=== PATIENT | female | born 1995 | race Caucasian/White ===

== ENCOUNTER 2016-09-02 09:19 | Emergency (ER) | payer OTHER ==
[2016-09-02] MEDS ORDERED: PANTOPRAZOLE 40MG INJ (PROTONIX) (C9113) As Ordered ONE (10:30)
[2016-09-02 10:57] LABS: BASO % 0.5 % (0.0-1.0); EOS # 0.1 K/mm3 (0.0-0.50); EOS % 1.6 % (0.0-3.0); LARGE UNSTAINED CELL # 0.1 K/mm3 (0.0-0.4); LARGE UNSTAINED CELL % 2.3 % (0.0-4.0); LYMPH # 1.1 K/mm3 (1.5-6.5); LYMPH % 27.7 % (24.0-44.0); MEAN CORPUSCULAR HEMOGLOBIN 29.3 pg (27.0-33.0); MEAN CORPUSCULAR VOLUME 86.2 fl (80.0-96.0); MONO # 0.3 K/mm3 (0.0-0.8); MONO % 7.3 % (0.0-5.0); NEUTROPHILS # 2.4 K/mm3 (1.8-7.7); NEUTROPHILS % 60.5 % (36.0-66.0); PLATELET COUNT, AUTOMATED 233 k/mm3 (150-450); RED CELL DISTRIBUTION WIDTH 12.3 % (11.5-14.5)
[2016-09-02 11:06] LABS: ALBUMIN 3.6 GM/DL (3.2-5.2); ALBUMIN/GLOBULIN RATIO 0.95 (1.00-1.93); ALKALINE PHOSPHATASE 70 U/L (45-117); ALT/SGPT 41 U/L (12-78); AMYLASE 43 U/L (25-115); ANION GAP 8 MEQ/L (8-16); AST/SGOT 23 U/L (15-37); BILIRUBIN,DIRECT < 0.1 MG/DL (0.0-0.2); BILIRUBIN,TOTAL 0.3 MG/DL (0.2-1.0); BLOOD UREA NITROGEN 8 MG/DL (7-18); CALCIUM LEVEL 8.7 MG/DL (8.5-10.1); CARBON DIOXIDE LEVEL 29 MEQ/L (21-32); CHLORIDE LEVEL 107 MEQ/L (98-107); CREATININE FOR GFR 0.64 MG/DL (0.55-1.02); GLOMERULAR FILTRATION RATE > 60.0 (>60); GLUCOSE, FASTING 82 MG/DL (70-105); POTASSIUM SERUM 3.7 MEQ/L (3.5-5.1); SODIUM LEVEL 144 MEQ/L (136-145); TOTAL PROTEIN 7.4 GM/DL (6.4-8.2)
--- NOTE | 2016-09-02 12:11 | EDDOCDS ---
Physician Documentation [facility] Name: Yane Cardenas Age: 21 yrs Sex: Female : 1995 Arrival Date: 09/02/2016 Time: 09:19 Bed I3 / M3 Private MD: MAXI Hunter Disposition: 09/02/16 11:57 Discharged to Home/Self Care. Impression: Diarrhea, unspecified - viral gastroenteritis, Nausea and vomiting. - Condition is Stable. - Discharge Instructions: Viral Gastroenteritis. - Prescriptions for Pepcid 20 mg Oral Tablet - take 1 tablet by ORAL route every 12 hours for 5 days; 10 tablet. ZOFRAN ODT 4 mg - dissolve 1 tablet by ORAL route 4 times per day As needed do not chew, do not swallow whole; 10 tablet. - Medication Reconciliation, Local Pharmacy Hours form. - Follow up: MAXI Hunter; When: 2 - 3 days; Reason: Recheck today's complaints. Follow up: Emergency Department; When: As needed; Reason: Fever > 102F, Worsening of conditions. - Problem is new. - Symptoms are unchanged. Historical: - Allergies: Vicodin; - Home Meds: 1. BCP once daily - PMHx: miscarriage (2011); - PSHx: wisdom teeth removal; - Social history: Smoking status: Patient states was never smoker of tobacco. No barriers to communication noted, The patient speaks fluent French. - Family history: Not pertinent. - : The pt / caregiver states he / she is not on anticoagulants. Home medication list is obtained from the patient. - Exposure Risk Screening:: None identified. 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 5 in. (165.10 cm); Pain 7/10; 11:51 BP 122 / 72; Pulse 96; Resp 18; Temp 98.1; Pulse Ox 100% ; Pain 2/10; jam1 09:22 Body Mass Index 27.46 (74.84 kg, 165.10 cm) cmb MDM: 09:59 IV Saline Lock ordered. ar2 09:59 Undress patient appropriately for examination ordered. ar2 09:59 UCG by Nursing ordered. ar2 09:59 pantoprazole 40 mg IV at bolus once ordered. ar2 10:00 Amylase Ordered. EDMS 10:00 Basic Metabolic Profile Ordered. EDMS 10:00 CBC with Diff Ordered. EDMS 10:00 Lipase Ordered. EDMS 10:00 Liver Profile Ordered. EDMS 10:00 NOTHING BY MOUTH+DIET ordered. EDMS 10:11 UA Ordered. EDMS 10:12 Financial registration complete. lg 10:38 NS 0.9% 1000 ml IV at bolus once ordered. ar2 11:14 CBC with Diff Reviewed. ar2 11:14 Liver Profile Reviewed. ar2 11:14 UA Reviewed. ar2 11:14 Amylase Reviewed. ar2 11:14 Basic Metabolic Profile Reviewed. ar2 11:14 Lipase Reviewed. ar2 11:19 Fluid Challenge ordered. ar2 11:39 [facility] Payment Agreement was scanned into [employer] and attached to record. Point of Care Testing: Urine : 10:14 hCG Reading: Negative; Control Reading: Positive; bcj Ranges: Administered Medications: 10:41 Drug: NS 0.9% 1000 ml [sodium chloride 0.9 % intravenous solution] Route: IV; Rate: srm bolus; Site: left antecubital; 10:42 Drug: pantoprazole 40 mg [pantoprazole 40 mg intravenous solution] Route: IV; Rate: mk4 bolus; Site: left antecubital; Signatures: Dispatcher [employer]Host Shantal Fonseca RN RN [facility] Caleb Rodriguez, Reg Reg Leif Huynh, LORI PAJesus ar2 Sheron Yoon RN RN mk4 The chart was reviewed and I authenticate all verbal orders and agree with the evaluation and treatment provided.Corrections: (The following items were deleted from the chart) 09:38 09:37 Home Meds: none; mk4 mk4 Attachments: 11:39 [facility] Payment Agreement lg MTDD
--- NOTE | 2016-09-02 12:11 | EDDOCDS ---
Nurse's Notes [facility] Name: Yane Cardenas Age: 21 yrs Sex: Female : 1995 Arrival Date: 09/02/2016 Time: 09:19 Bed I3 / M3 Private MD: Dale [facility] Diagnosis: Diarrhea, unspecified-viral gastroenteritis;Nausea and vomiting Presentation: 09/02 09:36 Presenting complaint: Patient states: right lower quadrant pain vomited ny eves. Risk mk4 factors: the patient reports no vaginal bleeding. Adult Sepsis Screening: The patient does not have new or worsening altered mentation. Patient's respiratory rate is less than 22. Systolic blood pressure is greater than 100. Patient has a qSOFA score of 0- Negative Sepsis Screen. Suicide/Homicide risk assessment- the patient denies having any suicidal and/or homicidal ideations and does not present with any other emotional, behavioral or mental health complaints. Status: The patient is a dependent. Transition of care: patient was not received from another setting of care. 09:36 Acuity: LEONARDA Level 3 mk4 09:36 Method Of Arrival: Walkin/Carried/Asstd mk4 Triage Assessment: 09:37 General: Appears uncomfortable. mk4 09:38 Pain: Location: epigastric area, right upper quadrant and right lower quadrant Pain mk4 currently is 7 out of 10 on a pain scale. HIV screening NA for this visit Offered previously. 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 BCP once daily - PMHx: miscarriage (2011); - PSHx: wisdom teeth removal; - Social history: Smoking status: Patient states was never smoker of tobacco. No barriers to communication noted, The patient speaks fluent Frisian. - Family history: Not pertinent. - : The pt / caregiver states he / she is not on anticoagulants. Home medication list is obtained from the patient. - Exposure Risk Screening:: None identified. Screenin:30 Screening information is obtained from the patient. Fall risk: No risks identified. srm Assistance ADL's: requires no assistance with activities of daily living. Abuse/DV Screen: The patient / caregiver reports he/she is: not in a situation that causes fear, pain or injury. Nutritional screening: No deficits noted. Advance Directives: There is no active DNR order. home support is adequate. Assessment: 10:29 General: Appears in no apparent distress, Behavior is appropriate for age, cooperative. srm Neurological: No deficits noted. EENT: No deficits noted. Cardiovascular: No deficits noted. Respiratory: Airway is patent Respiratory effort is even, unlabored, Breath sounds are clear bilaterally. GI: Abdomen is non- distended Bowel sounds present X 4 quads. Abd is soft X 4 quads Abd is tender to palpation in right upper quadrant. Derm: No deficits noted. 12:09 General: Appears in no apparent distress, Behavior is appropriate for age, cooperative. srm Neurological: No deficits noted. EENT: No deficits noted. Cardiovascular: No deficits noted. GI: No deficits noted. Musculoskeletal: No deficits noted. Vital Signs: 09:22 BP 144 / 82; Pulse 88; Resp 16; Temp 98.4(O); Pulse Ox 100% ; Weight 74.84 kg; Height 5 cmb ft. 5 in. (165.10 cm); Pain 7/10; 11:51 BP 122 / 72; Pulse 96; Resp 18; Temp 98.1; Pulse Ox 100% ; Pain 2/10; jam1 09:22 Body Mass Index 27.46 (74.84 kg, 165.10 cm) b Vitals: 09:22 Log In Time: September 02, 2016 at 09:17. b ED Course: 09:21 Patient visited by Eliana Santizo. cmb 09:21 Dale [facility] is Private Physician. cmb 09:21 Patient moved to Waiting cmb 09:22 Patient moved to Pre RCE cmb 09:36 Triage Initiated mk4 09:47 Patient moved to Triage 3 kcs 09:52 [facility] ar2 09:52 Karina Brumfield MD is Attending Physician. ar2 09:52 Patient visited by Leif Huynh PA-C. ar2 10:14 Patient visited by Man Seals RN. bcj 10:14 Patient moved to I3 / M3 kcs 10:14 UA Sent. bcj 10:29 Amylase Sent. srm 10:29 Basic Metabolic Profile Sent. srm 10:29 CBC with Diff Sent. srm 10:29 Lipase Sent. srm 10:29 Liver Profile Sent. srm 10:30 The patient / caregiver is instructed regarding the plan of care and ED course. Patient eldon has correct armband on for positive identification. Placed in gown. Bed in low position. Call light in reach. Side rails up X 1. 10:30 Inserted saline lock: 20 gauge in left antecubital area and blood collected. srm 10:31 Patient visited by Shantal Gracia RN. srm 11:04 Patient visited by Sheron Yoon RN. mk4 11:39 Patient name changed from Yane\S\\S\Gariss\S\ to Yane\S\Griselda\S\Gariss. EDMS 11:39 [facility] [place] [place] Payment Agreement was scanned into [employer] and attached to record. lg 11:55 Dale [facility] is Referral Physician. ar2 12:09 Discontinued lock intact, bleeding controlled, pressure dressing applied, No srm redness/swelling at site. No procedures done that require assistance. Administered Medications: 10:41 Drug: NS 0.9% 1000 ml [sodium chloride 0.9 % intravenous solution] Route: IV; Rate: srm bolus; Site: left antecubital; 10:42 Drug: pantoprazole 40 mg [pantoprazole 40 mg intravenous solution] Route: IV; Rate: mk4 bolus; Site: left antecubital; Point of Care Testing: Urine : 10:14 hCG Reading: Negative; Control Reading: Positive; bcj Ranges: Intake: 12:09 IV: 750.00ml (NS); Total: 750.00ml. [facility] Order Results: Lab Order: Amylase; SPEC'M 09/02/16 10:25 Test: AMYLASE; Value: 43; Range: 25-115; Units: U/L; Status: F Lab Order: Basic Metabolic Profile; SPEC'M 09/02/16 10:25 Test: GLUCOSE, FASTING; Value: 82; Range: 70-105; Units: MG/DL; Status: F Test: BLOOD UREA NITROGEN; Value: 8; Range: 7-18; Units: MG/DL; Status: F Test: CREATININE FOR GFR; Value: 0.64; Range: 0.55-1.02; Units: MG/DL; Status: F Test: GLOMERULAR FILTRATION RATE; Value: > 60.0; Range: >60; Status: F Test: SODIUM LEVEL; Value: 144; Range: 136-145; Units: MEQ/L; Status: F Test: POTASSIUM SERUM; Value: 3.7; Range: 3.5-5.1; Units: MEQ/L; Status: F Test: CHLORIDE LEVEL; Value: 107; Range: 98-107; Units: MEQ/L; Status: F Test: CARBON DIOXIDE LEVEL; Value: 29; Range: 21-32; Units: MEQ/L; Status: F Test: ANION GAP; Value: 8; Range: 8-16; Units: MEQ/L; Status: F Test: CALCIUM LEVEL; Value: 8.7; Range: 8.5-10.1; Units: MG/DL; Status: F Test Note: ; Units are mL/min/1.73 m2 Chronic Kidney Disease Staging per NKF: Stage I & II GFR >=60 Normal to Mildly Decreased Stage III GFR 30-59 Moderately Decreased Stage IV GFR 15-29 Severely Decreased Stage V GFR <15 Very Little GFR Left ESRD GFR <15 on CAR DRIVER Lab Order: CBC with Diff; SPEC'M 09/02/16 10:25 Test: WHITE BLOOD COUNT; Value: 4.0; Range: 4.0-10.0; Units: K/mm3; Status: F Test: RED BLOOD COUNT; Value: 4.79; Range: 4.00-5.40; Units: M/mm3; Status: F Test: HEMOGLOBIN; Value: 14.0; Range: 12.0-16.0; Units: g/dl; Status: F Test: HEMATOCRIT; Value: 41.3; Range: 36.0-47.0; Units: %; Status: F Test: MEAN CORPUSCULAR VOLUME; Value: 86.2; Range: 80.0-96.0; Units: fl; Status: F Test: MEAN CORPUSCULAR HEMOGLOBIN; Value: 29.3; Range: 27.0-33.0; Units: pg; Status: F Test: MEAN CORPUSCULAR HGB CONC; Value: 34.0; Range: 32.0-36.5; Units: g/dl; Status: F Test: RED CELL DISTRIBUTION WIDTH; Value: 12.3; Range: 11.5-14.5; Units: %; Status: F Test: PLATELET COUNT, AUTOMATED; Value: 233; Range: 150-450; Units: k/mm3; Status: F Test: NEUTROPHILS %; Value: 60.5; Range: 36.0-66.0; Units: %; Status: F Test: LYMPH %; Value: 27.7; Range: 24.0-44.0; Units: %; Status: F Test: MONO %; Value: 7.3; Range: 0.0-5.0; Abnormal: Above high normal; Units: %; Status: F Test: EOS %; Value: 1.6; Range: 0.0-3.0; Units: %; Status: F Test: BASO %; Value: 0.5; Range: 0.0-1.0; Units: %; Status: F Test: LARGE UNSTAINED CELL %; Value: 2.3; Range: 0.0-4.0; Units: %; Status: F Test: NEUTROPHILS #; Value: 2.4; Range: 1.8-7.7; Units: K/mm3; Status: F Test: LYMPH #; Value: 1.1; Range: 1.5-6.5; Abnormal: Below low normal; Units: K/mm3; Status: F Test: MONO #; Value: 0.3; Range: 0.0-0.8; Units: K/mm3; Status: F Test: EOS #; Value: 0.1; Range: 0.0-0.50; Units: K/mm3; Status: F Test: BASO #; Value: 0.0; Range: 0.0-0.2; Units: K/mm3; Status: F Test: LARGE UNSTAINED CELL #; Value: 0.1; Range: 0.0-0.4; Units: K/mm3; Status: F Lab Order: Lipase; SPEC'M 09/02/16 10:25 Test: LIPASE; Value: 186; Range: 73-393; Units: U/L; Status: F Lab Order: Liver Profile; SPEC'M 09/02/16 10:25 Test: AST/SGOT; Value: 23; Range: 15-37; Units: U/L; Status: F Test: ALT/SGPT; Value: 41; Range: 12-78; Units: U/L; Status: F Test: ALKALINE PHOSPHATASE; Value: 70; Range: 45-117; Units: U/L; Status: F Test: BILIRUBIN,TOTAL; Value: 0.3; Range: 0.2-1.0; Units: MG/DL; Status: F Test: BILIRUBIN,DIRECT; Value: < 0.1; Range: 0.0-0.2; Units: MG/DL; Status: F Test: TOTAL PROTEIN; Value: 7.4; Range: 6.4-8.2; Units: GM/DL; Status: F Test: ALBUMIN; Value: 3.6; Range: 3.2-5.2; Units: GM/DL; Status: F Test: ALBUMIN/GLOBULIN RATIO; Value: 0.95; Range: 1.00-1.93; Abnormal: Below low normal; Status: F Lab Order: UA; SPEC'M 09/02/16 10:11 Test: APPEARANCE, URINE; Value: CLOUDY; Range: CLEAR; Abnormal: Above high normal; Status: F Test: COLOR, URINE; Value: YELLOW; Range: YELLOW; Status: F Test: PH,URINE; Value: 5.0; Range: 5.0-9.0; Units: UNITS; Status: F Test: SPECIFIC GRAVITY URINE AUTO; Value: 1.024; Range: 1.002-1.035; Status: F Test: PROTEIN, URINE AUTO; Value: NEGATIVE; Range: NEGATIVE; Units: mg/dL; Status: F Test: GLUCOSE, URINE (UA) AUTO; Value: NEGATIVE; Range: NEGATIVE; Units: mg/dL; Status: F Test: KETONE, URINE AUTO; Value: NEGATIVE; Range: NEGATIVE; Units: mg/dL; Status: F Test: UROBILINOGEN, URINE AUTO; Value: 2.0; Range: 0.0-2.0; Abnormal: Above high normal; Units: mg/dL; Status: F Test: BILIRUBIN, URINE AUTO; Value: NEGATIVE; Range: NEGATIVE; Status: F Test: NITRITE, URINE AUTO; Value: NEGATIVE; Range: NEGATIVE; Status: F Test: LEUKOCYTE ESTERASE, URINE AUTO; Value: 2+; Range: NEGATIVE; Abnormal: Above high normal; Status: F Test: BLOOD, URINE BLOOD; Value: NEGATIVE; Range: NEGATIVE; Status: F Test: WBC, URINE AUTO; Value: 5; Range: 0-3; Abnormal: Above high normal; Units: /HPF; Status: F Test: RBC, URINE AUTO; Value: 6; Range: 0-3; Abnormal: Above high normal; Units: /HPF; Status: F Test: BACTERIA, URINE AUTO; Value: 1+; Range: NEGATIVE; Abnormal: Above high normal; Status: F Test: SQUAMOUS EPITHELIAL CELL UR AU; Value: 17; Range: 0-6; Units: /HPF; Status: F Test: MUCUS, URINE; Value: SMALL; Range: NEGATIVE; Status: F Test: HYALINE CAST, URINE AUTO; Value: 0; Range: 0-1; Units: /LPF; Status: F Outcome: 11:57 Discharge ordered by Provider. ar2 12:09 Discharge Assessment: Patient awake, alert and oriented x 3. No cognitive and/or srm functional deficits noted. Patient verbalized understanding of disposition instructions. patient administered narcotics - no. The following High Risk Discharge criteria are identified: None. Discharged to home ambulatory. Condition: stable Condition: improved. Discharge instructions given to patient, Instructed on discharge instructions, follow up and referral plans. medication usage, diet, Demonstrated understanding of instructions, medications, Pt was receptive of discharge instructions/ teaching. Prescriptions given X 2. No special radiology studies were completed. Property :Personal belongings accompany Pt. 12:10 Patient left the ED. srm Signatures: Dispatcher MedHost EDMS Louise Ybarra RN RN Man Clemente RN RN bcj Michelson, Staci, RN RN srm Genet Locke, FIRM ADMINISTRATOR FIRM ADMINISTRATOR jam1 Caleb Rodriguez, Reg Reg lg Leif Huynh, PA-C PA-C Eliana Valdovinos Margaret RN RN mk4 Corrections: (The following items were deleted from the chart) 09:38 09:37 Home Meds: none; mk4 mk4 MTDTeo
--- NOTE | 2016-09-04 13:11 | EDDOCDS ---
Physician Documentation [facility] Name: Yane Cardenas Age: 21 yrs Sex: Female : 1995 Arrival Date: 09/02/2016 Time: 09:19 Bed I3 / M3 Private MD: MAXI Hunter Disposition: 09/02/16 11:57 Discharged to Home/Self Care. Impression: Diarrhea, unspecified - viral gastroenteritis, Nausea and vomiting. - Condition is Stable. - Discharge Instructions: Viral Gastroenteritis. - Prescriptions for Pepcid 20 mg Oral Tablet - take 1 tablet by ORAL route every 12 hours for 5 days; 10 tablet. ZOFRAN ODT 4 mg - dissolve 1 tablet by ORAL route 4 times per day As needed do not chew, do not swallow whole; 10 tablet. - Medication Reconciliation, Local Pharmacy Hours form. - Follow up: MAXI Hunter; When: 2 - 3 days; Reason: Recheck today's complaints. Follow up: Emergency Department; When: As needed; Reason: Fever > 102F, Worsening of conditions. - Problem is new. - Symptoms are unchanged. Historical: - Allergies: Vicodin; - Home Meds: 1. BCP once daily - PMHx: miscarriage (2011); - PSHx: wisdom teeth removal; - Social history: Smoking status: Patient states was never smoker of tobacco. No barriers to communication noted, The patient speaks fluent Lao. - Family history: Not pertinent. - : The pt / caregiver states he / she is not on anticoagulants. Home medication list is obtained from the patient. - Exposure Risk Screening:: None identified. 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 5 in. (165.10 cm); Pain 7/10; 11:51 BP 122 / 72; Pulse 96; Resp 18; Temp 98.1; Pulse Ox 100% ; Pain 2/10; jam1 09:22 Body Mass Index 27.46 (74.84 kg, 165.10 cm) cmb MDM: 09:59 IV Saline Lock ordered. ar2 09:59 Undress patient appropriately for examination ordered. ar2 09:59 UCG by Nursing ordered. ar2 09:59 pantoprazole 40 mg IV at bolus once ordered. ar2 10:00 Amylase Ordered. EDMS 10:00 Basic Metabolic Profile Ordered. EDMS 10:00 CBC with Diff Ordered. EDMS 10:00 Lipase Ordered. EDMS 10:00 Liver Profile Ordered. EDMS 10:00 NOTHING BY MOUTH+DIET ordered. EDMS 10:11 UA Ordered. EDMS 10:12 Financial registration complete. lg 10:38 NS 0.9% 1000 ml IV at bolus once ordered. ar2 11:14 CBC with Diff Reviewed. ar2 11:14 Liver Profile Reviewed. ar2 11:14 UA Reviewed. ar2 11:14 Amylase Reviewed. ar2 11:14 Basic Metabolic Profile Reviewed. ar2 11:14 Lipase Reviewed. ar2 11:19 Fluid Challenge ordered. ar2 11:39 [facility] Payment Agreement was scanned into [employer] and attached to record. 09/03 10:28 T-Sheet-- Draft Copy was scanned into [employer] and attached to record. gb Point of Care Testing: Urine : 09/02 10:14 hCG Reading: Negative; Control Reading: Positive; bcj Ranges: Administered Medications: 10:41 Drug: NS 0.9% 1000 ml [sodium chloride 0.9 % intravenous solution] Route: IV; Rate: srm bolus; Site: left antecubital; 10:42 Drug: pantoprazole 40 mg [pantoprazole 40 mg intravenous solution] Route: IV; Rate: mk4 bolus; Site: left antecubital; Signatures: Dispatcher MedHost Shantal Fonseca RN [facility] Meghann Dorsey, Reg Reg gb Caleb Rodriguez, Reg Reg lg Leif Huynh PA-C PA-C ar2 Sheron Yoon RN RN [email or web address] The chart was reviewed and I authenticate all verbal orders and agree with the evaluation and treatment provided.Corrections: (The following items were deleted from the chart) 09:38 09:37 Home Meds: none; mk4 mk4 Attachments: 11:39 [facility] Payment Agreement 09/03 10:28 T-Sheet-- Draft Copy gb Chart Complete MTDD
--- NOTE | 2016-09-04 13:11 | EDDOCDS ---
Physician Documentation [facility] Name: aYne Cardenas Age: 21 yrs Sex: Female : 1995 Arrival Date: 09/02/2016 Time: 09:19 Bed I3 / M3 Private MD: MAXI Hunter Disposition: 09/02/16 11:57 Discharged to Home/Self Care. Impression: Diarrhea, unspecified - viral gastroenteritis, Nausea and vomiting. - Condition is Stable. - Discharge Instructions: Viral Gastroenteritis. - Prescriptions for Pepcid 20 mg Oral Tablet - take 1 tablet by ORAL route every 12 hours for 5 days; 10 tablet. ZOFRAN ODT 4 mg - dissolve 1 tablet by ORAL route 4 times per day As needed do not chew, do not swallow whole; 10 tablet. - Medication Reconciliation, Local Pharmacy Hours form. - Follow up: MAXI Hunter; When: 2 - 3 days; Reason: Recheck today's complaints. Follow up: Emergency Department; When: As needed; Reason: Fever > 102F, Worsening of conditions. - Problem is new. - Symptoms are unchanged. Historical: - Allergies: Vicodin; - Home Meds: 1. BCP once daily - PMHx: miscarriage (2011); - PSHx: wisdom teeth removal; - Social history: Smoking status: Patient states was never smoker of tobacco. No barriers to communication noted, The patient speaks fluent Bulgarian. - Family history: Not pertinent. - : The pt / caregiver states he / she is not on anticoagulants. Home medication list is obtained from the patient. - Exposure Risk Screening:: None identified. 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 5 in. (165.10 cm); Pain 7/10; 11:51 BP 122 / 72; Pulse 96; Resp 18; Temp 98.1; Pulse Ox 100% ; Pain 2/10; jam1 09:22 Body Mass Index 27.46 (74.84 kg, 165.10 cm) cmb MDM: 09:59 IV Saline Lock ordered. ar2 09:59 Undress patient appropriately for examination ordered. ar2 09:59 UCG by Nursing ordered. ar2 09:59 pantoprazole 40 mg IV at bolus once ordered. ar2 10:00 Amylase Ordered. EDMS 10:00 Basic Metabolic Profile Ordered. EDMS 10:00 CBC with Diff Ordered. EDMS 10:00 Lipase Ordered. EDMS 10:00 Liver Profile Ordered. EDMS 10:00 NOTHING BY MOUTH+DIET ordered. EDMS 10:11 UA Ordered. EDMS 10:12 Financial registration complete. lg 10:38 NS 0.9% 1000 ml IV at bolus once ordered. ar2 11:14 CBC with Diff Reviewed. ar2 11:14 Liver Profile Reviewed. ar2 11:14 UA Reviewed. ar2 11:14 Amylase Reviewed. ar2 11:14 Basic Metabolic Profile Reviewed. ar2 11:14 Lipase Reviewed. ar2 11:19 Fluid Challenge ordered. ar2 11:39 [facility] Payment Agreement was scanned into [email or web address] and attached to record. 09/03 10:28 T-Sheet-- Draft Copy was scanned into [email or web address] and attached to record. gb Point of Care Testing: Urine : 09/02 10:14 hCG Reading: Negative; Control Reading: Positive; bcj Ranges: Administered Medications: 10:41 Drug: NS 0.9% 1000 ml [sodium chloride 0.9 % intravenous solution] Route: IV; Rate: srm bolus; Site: left antecubital; 10:42 Drug: pantoprazole 40 mg [pantoprazole 40 mg intravenous solution] Route: IV; Rate: mk4 bolus; Site: left antecubital; Signatures: Dispatcher [employer] Shantal Fonseca RN [facility] Meghann Dorsey, Reg Reg gb Caleb Rodriguez, Reg Reg lg Leif Huynh PA-C PA-C ar2 Sheron Yoon RN RN [email or web address] The chart was reviewed and I authenticate all verbal orders and agree with the evaluation and treatment provided.Corrections: (The following items were deleted from the chart) 09:38 09:37 Home Meds: none; mk4 mk4 Attachments: 11:39 [facility] Payment Agreement 09/03 10:28 T-Sheet-- Draft Copy gb Chart Complete MTDD
--- NOTE | 2016-09-04 13:11 | EDDOCDS ---
Nurse's Notes [facility] Name: Yane Cardenas Age: 21 yrs Sex: Female : 1995 Arrival Date: 09/02/2016 Time: 09:19 Bed I3 / M3 Private MD: Dale [facility] [place] Diagnosis: Diarrhea, unspecified-viral gastroenteritis;Nausea and vomiting Presentation: 09/02 09:36 Presenting complaint: Patient states: right lower quadrant pain vomited ny eves. Risk mk4 factors: the patient reports no vaginal bleeding. Adult Sepsis Screening: The patient does not have new or worsening altered mentation. Patient's respiratory rate is less than 22. Systolic blood pressure is greater than 100. Patient has a qSOFA score of 0- Negative Sepsis Screen. Suicide/Homicide risk assessment- the patient denies having any suicidal and/or homicidal ideations and does not present with any other emotional, behavioral or mental health complaints. Status: The patient is a dependent. Transition of care: patient was not received from another setting of care. 09:36 Acuity: LEONARDA Level 3 mk4 09:36 Method Of Arrival: Walkin/Carried/Asstd mk4 Triage Assessment: 09:37 General: Appears uncomfortable. mk4 09:38 Pain: Location: epigastric area, right upper quadrant and right lower quadrant Pain mk4 currently is 7 out of 10 on a pain scale. HIV screening NA for this visit Offered previously. STEEL FITTER: 09:37 LMP 08/02/2016 mk4 Historical: - Allergies: Vicodin; - Home Meds: 1. BCP once daily - PMHx: miscarriage (2011); - PSHx: wisdom teeth removal; - Social history: Smoking status: Patient states was never smoker of tobacco. No barriers to communication noted, The patient speaks fluent Spanish. - Family history: Not pertinent. - : The pt / caregiver states he / she is not on anticoagulants. Home medication list is obtained from the patient. - Exposure Risk Screening:: None identified. Screenin:30 Screening information is obtained from the patient. Fall risk: No risks identified. srm Assistance ADL's: requires no assistance with activities of daily living. Abuse/DV Screen: The patient / caregiver reports he/she is: not in a situation that causes fear, pain or injury. Nutritional screening: No deficits noted. Advance Directives: There is no active DNR order. home support is adequate. Assessment: 10:29 General: Appears in no apparent distress, Behavior is appropriate for age, cooperative. srm Neurological: No deficits noted. EENT: No deficits noted. Cardiovascular: No deficits noted. Respiratory: Airway is patent Respiratory effort is even, unlabored, Breath sounds are clear bilaterally. GI: Abdomen is non- distended Bowel sounds present X 4 quads. Abd is soft X 4 quads Abd is tender to palpation in right upper quadrant. Derm: No deficits noted. 12:09 General: Appears in no apparent distress, Behavior is appropriate for age, cooperative. srm Neurological: No deficits noted. EENT: No deficits noted. Cardiovascular: No deficits noted. GI: No deficits noted. Musculoskeletal: No deficits noted. Vital Signs: 09:22 BP 144 / 82; Pulse 88; Resp 16; Temp 98.4(O); Pulse Ox 100% ; Weight 74.84 kg; Height 5 cmb ft. 5 in. (165.10 cm); Pain 7/10; 11:51 BP 122 / 72; Pulse 96; Resp 18; Temp 98.1; Pulse Ox 100% ; Pain 2/10; jam1 09:22 Body Mass Index 27.46 (74.84 kg, 165.10 cm) b Vitals: 09:22 Log In Time: September 02, 2016 at 09:17. b ED Course: 09:21 Patient visited by Eliana Santizo. cmb 09:21 Dale [facility] is Private Physician. cmb 09:21 Patient moved to Waiting cmb 09:22 Patient moved to Pre RCE cmb 09:36 Triage Initiated mk4 09:47 Patient moved to Triage 3 kcs 09:52 [facility] ar2 09:52 Karina Brumfield MD is Attending Physician. ar2 09:52 Patient visited by Leif Huynh PA-C. ar2 10:14 Patient visited by Man Seals RN. bcj 10:14 Patient moved to I3 / M3 kcs 10:14 UA Sent. bcj 10:29 Amylase Sent. srm 10:29 Basic Metabolic Profile Sent. srm 10:29 CBC with Diff Sent. srm 10:29 Lipase Sent. srm 10:29 Liver Profile Sent. srm 10:30 The patient / caregiver is instructed regarding the plan of care and ED course. Patient eldon has correct armband on for positive identification. Placed in gown. Bed in low position. Call light in reach. Side rails up X 1. 10:30 Inserted saline lock: 20 gauge in left antecubital area and blood collected. srm 10:31 Patient visited by Shantal Gracia, [place]. srm 11:04 Patient visited by Sheron Yoon RN. mk4 11:39 Patient name changed from Yane\S\\S\Gariss\S\ to Yane\S\Griselda\S\Gariss. EDMS 11:39 [place] was scanned into [employer] and attached to record. lg 11:55 Dale [facility] is Referral Physician. ar2 12:09 Discontinued lock intact, bleeding controlled, pressure dressing applied, No srm redness/swelling at site. No procedures done that require assistance. 09/03 10:28 T-Sheet-- Draft Copy was scanned into [employer] and attached to record. gb Administered Medications: 09/02 10:41 Drug: NS 0.9% 1000 ml [sodium chloride 0.9 % intravenous solution] Route: IV; Rate: srm bolus; Site: left antecubital; 10:42 Drug: pantoprazole 40 mg [pantoprazole 40 mg intravenous solution] Route: IV; Rate: mk4 bolus; Site: left antecubital; Point of Care Testing: Urine : 10:14 hCG Reading: Negative; Control Reading: Positive; bcj Ranges: Intake: 12:09 IV: 750.00ml (NS); Total: 750.00ml. [facility] Order Results: Lab Order: Amylase; SPEC'M 09/02/16 10:25 Test: AMYLASE; Value: 43; Range: 25-115; Units: U/L; Status: F Lab Order: Basic Metabolic Profile; SPEC'M 09/02/16 10:25 Test: GLUCOSE, FASTING; Value: 82; Range: 70-105; Units: MG/DL; Status: F Test: BLOOD UREA NITROGEN; Value: 8; Range: 7-18; Units: MG/DL; Status: F Test: CREATININE FOR GFR; Value: 0.64; Range: 0.55-1.02; Units: MG/DL; Status: F Test: GLOMERULAR FILTRATION RATE; Value: > 60.0; Range: >60; Status: F Test: SODIUM LEVEL; Value: 144; Range: 136-145; Units: MEQ/L; Status: F Test: POTASSIUM SERUM; Value: 3.7; Range: 3.5-5.1; Units: MEQ/L; Status: F Test: CHLORIDE LEVEL; Value: 107; Range: 98-107; Units: MEQ/L; Status: F Test: CARBON DIOXIDE LEVEL; Value: 29; Range: 21-32; Units: MEQ/L; Status: F Test: ANION GAP; Value: 8; Range: 8-16; Units: MEQ/L; Status: F Test: CALCIUM LEVEL; Value: 8.7; Range: 8.5-10.1; Units: MG/DL; Status: F Test Note: ; Units are mL/min/1.73 m2 Chronic Kidney Disease Staging per NKF: Stage I & II GFR >=60 Normal to Mildly Decreased Stage III GFR 30-59 Moderately Decreased Stage IV GFR 15-29 Severely Decreased Stage V GFR <15 Very Little GFR Left ESRD GFR <15 on CLOSING COORDINATOR Lab Order: CBC with Diff; SPEC'M 09/02/16 10:25 Test: WHITE BLOOD COUNT; Value: 4.0; Range: 4.0-10.0; Units: K/mm3; Status: F Test: RED BLOOD COUNT; Value: 4.79; Range: 4.00-5.40; Units: M/mm3; Status: F Test: HEMOGLOBIN; Value: 14.0; Range: 12.0-16.0; Units: g/dl; Status: F Test: HEMATOCRIT; Value: 41.3; Range: 36.0-47.0; Units: %; Status: F Test: MEAN CORPUSCULAR VOLUME; Value: 86.2; Range: 80.0-96.0; Units: fl; Status: F Test: MEAN CORPUSCULAR HEMOGLOBIN; Value: 29.3; Range: 27.0-33.0; Units: pg; Status: F Test: MEAN CORPUSCULAR HGB CONC; Value: 34.0; Range: 32.0-36.5; Units: g/dl; Status: F Test: RED CELL DISTRIBUTION WIDTH; Value: 12.3; Range: 11.5-14.5; Units: %; Status: F Test: PLATELET COUNT, AUTOMATED; Value: 233; Range: 150-450; Units: k/mm3; Status: F Test: NEUTROPHILS %; Value: 60.5; Range: 36.0-66.0; Units: %; Status: F Test: LYMPH %; Value: 27.7; Range: 24.0-44.0; Units: %; Status: F Test: MONO %; Value: 7.3; Range: 0.0-5.0; Abnormal: Above high normal; Units: %; Status: F Test: EOS %; Value: 1.6; Range: 0.0-3.0; Units: %; Status: F Test: BASO %; Value: 0.5; Range: 0.0-1.0; Units: %; Status: F Test: LARGE UNSTAINED CELL %; Value: 2.3; Range: 0.0-4.0; Units: %; Status: F Test: NEUTROPHILS #; Value: 2.4; Range: 1.8-7.7; Units: K/mm3; Status: F Test: LYMPH #; Value: 1.1; Range: 1.5-6.5; Abnormal: Below low normal; Units: K/mm3; Status: F Test: MONO #; Value: 0.3; Range: 0.0-0.8; Units: K/mm3; Status: F Test: EOS #; Value: 0.1; Range: 0.0-0.50; Units: K/mm3; Status: F Test: BASO #; Value: 0.0; Range: 0.0-0.2; Units: K/mm3; Status: F Test: LARGE UNSTAINED CELL #; Value: 0.1; Range: 0.0-0.4; Units: K/mm3; Status: F Lab Order: Lipase; SPEC'M 09/02/16 10:25 Test: LIPASE; Value: 186; Range: 73-393; Units: U/L; Status: F Lab Order: Liver Profile; SPEC'09/02/16 10:25 Test: AST/SGOT; Value: 23; Range: 15-37; Units: U/L; Status: F Test: ALT/SGPT; Value: 41; Range: 12-78; Units: U/L; Status: F Test: ALKALINE PHOSPHATASE; Value: 70; Range: 45-117; Units: U/L; Status: F Test: BILIRUBIN,TOTAL; Value: 0.3; Range: 0.2-1.0; Units: MG/DL; Status: F Test: BILIRUBIN,DIRECT; Value: < 0.1; Range: 0.0-0.2; Units: MG/DL; Status: F Test: TOTAL PROTEIN; Value: 7.4; Range: 6.4-8.2; Units: GM/DL; Status: F Test: ALBUMIN; Value: 3.6; Range: 3.2-5.2; Units: GM/DL; Status: F Test: ALBUMIN/GLOBULIN RATIO; Value: 0.95; Range: 1.00-1.93; Abnormal: Below low normal; Status: F Lab Order: UA; SPEC'M 09/02/16 10:11 Test: APPEARANCE, URINE; Value: CLOUDY; Range: CLEAR; Abnormal: Above high normal; Status: F Test: COLOR, URINE; Value: YELLOW; Range: YELLOW; Status: F Test: PH,URINE; Value: 5.0; Range: 5.0-9.0; Units: UNITS; Status: F Test: SPECIFIC GRAVITY URINE AUTO; Value: 1.024; Range: 1.002-1.035; Status: F Test: PROTEIN, URINE AUTO; Value: NEGATIVE; Range: NEGATIVE; Units: mg/dL; Status: F Test: GLUCOSE, URINE (UA) AUTO; Value: NEGATIVE; Range: NEGATIVE; Units: mg/dL; Status: F Test: KETONE, URINE AUTO; Value: NEGATIVE; Range: NEGATIVE; Units: mg/dL; Status: F Test: UROBILINOGEN, URINE AUTO; Value: 2.0; Range: 0.0-2.0; Abnormal: Above high normal; Units: mg/dL; Status: F Test: BILIRUBIN, URINE AUTO; Value: NEGATIVE; Range: NEGATIVE; Status: F Test: NITRITE, URINE AUTO; Value: NEGATIVE; Range: NEGATIVE; Status: F Test: LEUKOCYTE ESTERASE, URINE AUTO; Value: 2+; Range: NEGATIVE; Abnormal: Above high normal; Status: F Test: BLOOD, URINE BLOOD; Value: NEGATIVE; Range: NEGATIVE; Status: F Test: WBC, URINE AUTO; Value: 5; Range: 0-3; Abnormal: Above high normal; Units: /HPF; Status: F Test: RBC, URINE AUTO; Value: 6; Range: 0-3; Abnormal: Above high normal; Units: /HPF; Status: F Test: BACTERIA, URINE AUTO; Value: 1+; Range: NEGATIVE; Abnormal: Above high normal; Status: F Test: SQUAMOUS EPITHELIAL CELL UR AU; Value: 17; Range: 0-6; Units: /HPF; Status: F Test: MUCUS, URINE; Value: SMALL; Range: NEGATIVE; Status: F Test: HYALINE CAST, URINE AUTO; Value: 0; Range: 0-1; Units: /LPF; Status: F Outcome: 11:57 Discharge ordered by Provider. ar2 12:09 Discharge Assessment: Patient awake, alert and oriented x 3. No cognitive and/or srm functional deficits noted. Patient verbalized understanding of disposition instructions. patient administered narcotics - no. The following High Risk Discharge criteria are identified: None. Discharged to home ambulatory. Condition: stable Condition: improved. Discharge instructions given to patient, Instructed on discharge instructions, follow up and referral plans. medication usage, diet, Demonstrated understanding of instructions, medications, Pt was receptive of discharge instructions/ teaching. Prescriptions given X 2. No special radiology studies were completed. Property :Personal belongings accompany Pt. 12:10 Patient left the ED. srm Signatures: Dispatcher [employer] EDLouise Barber RN RN kcs Johnson, Bruce, RN RN bcj Michelson, Staci, RN RN srm Genet Locke, WORKFORCE INVESTMENT ACT CAREER MANAGER WORKFORCE INVESTMENT ACT CAREER MANAGER jam1 Meghann Dorsey, Reg Reg gb Caleb Rodriguez, Reg Reg lg Leif Huynh, PA-C PA-C ar2 Eliana Santizo Margaret, RN RN mk4 Corrections: (The following items were deleted from the chart) 09:38 09:37 Home Meds: none; mk4 mk4 Chart Complete MTDD
== END 2016-09-02 12:10 | disposition home or self-care (01) ==
LOC: M ED 09:19
DX: A08.4 Viral intestinal infection, unspecified (principal); Z79.3 Long term (current) use of hormonal contraceptives; Z88.8 Allergy status to other drugs, medicaments and biological substances
CPT/HCPCS: 36415; 80048; 80076; 81001; 81025; 82150; 83690; 85025; 96374; 99284; C9113

== ENCOUNTER 2017-01-03 20:05 | Emergency (ER) | payer OTHER ==
[~2017-01-03] VITALS: Ht 165.1 cm; Wt 77.1 kg
[2017-01-03 21:58] LABS: CONTROL LINE UCG INT CTR LINE PRESENT
[2017-01-03] MEDS ORDERED: CIPROFLOXACIN 500 MG TAB PO ONE (22:15)
[2017-01-03] MEDS ORDERED: PHENAZOPYRIDINE 100 MG TAB PO ONE (22:15)
[2017-01-03] MEDS ORDERED: CIPR500T89 PO (22:20)
[2017-01-03] MEDS ORDERED: PYRI200T5 PO (22:20)
[2017-01-03 22:31] VITALS: BP 132/85
== END 2017-01-03 22:32 | disposition home or self-care (01) ==
LOC: M ED 21:19
DX: N39.0 Urinary tract infection, site not specified (principal); Z88.5 Allergy status to narcotic agent; Z88.8 Allergy status to other drugs, medicaments and biological substances